=== PATIENT | male | born 1950 | race Caucasian/White ===

== ENCOUNTER 2022-04-09 10:55 | Inpatient (IN) | payer SELFPAY ==
[~2022-04-09] VITALS: Ht 167.6 cm; Wt 69.5 kg
[2022-04-09 13:51] LABS: BASOPHILS % 0.4 % (0.0-2.0); EOSINOPHILS % 0.1 % (0.0-5.0); HEMATOCRIT. 41.1 % (42.0-52.0); MEAN CORPUSCULAR HEMOGLOBIN 31.2 pg (28.0-32.0); MEAN CORPUSCULAR VOLUME 91.6 fL (80.0-94.0); MEAN PLATELET VOLUME 9.7 fl (7.4-10.4); MONOCYTES % 7.8 % (2.0-8.0); NEUTROPHILS % 80.7 % (40.0-76.0); PLATELET 134 x1000/uL (130-400); RED BLOOD CELL COUNT 4.49 mill/uL (4.7-6.1); RED CELL DISTRIBUTION WIDTH 14.7 % (11.6-14.6)
[2022-04-09 14:07] LABS: CHLORIDE 100 mEq/L (98-107)
[2022-04-09 14:18] LABS: ETHANOL BLOOD < 10 mg/dL
[2022-04-09] MEDS ORDERED: CEFTRIAXONE 1 G PREMIX 50 ML IV ONE (15:45)
[2022-04-09] MEDS ORDERED: SODIUM CHLORIDE 0.9% 1000ML BAG (SEPSIS BOLUS) IV ONE (15:45)
[2022-04-09] MEDS ORDERED: OSELTAMIVIR 75MG CAPSULE PO ONE (15:45)
[2022-04-09] MEDS ORDERED: AZITHROMYCIN 500MG/250ML 250 ML IV ONE (15:45)
[2022-04-09] MEDS ORDERED: ASPIRIN 81MG TABLET PO ONE (16:15)
[2022-04-09 16:23] LABS: CLARITY URINE CLOUDY (CLEAR); COLOR URINE DARK YELLOW (YELLOW); KETONES URINE TRACE (NEGATIVE); LEUKOCYTE ESTERASE URINE NEGATIVE (NEGATIVE); NITRITE URINE NEGATIVE (NEGATIVE); OCCULT BLOOD URINE 2+ (NEGATIVE); PH URINE 5.5 (4.5-8.0); PROTEIN URINE 2+ (NEGATIVE); SPECIFIC GRAVITY URINE 1.022 (1.005-1.030)
[2022-04-09] MEDS ORDERED: AZITHROMYCIN 500MG/250ML 250 ML IV NR ×2 (17:15→21:45)
[2022-04-09] MEDS ORDERED: ASPIRIN 81MG TABLET PO NR (18:30)
[2022-04-09] MEDS ORDERED: CLONIDINE 0.1MG TABLET PO PRN (21:15)
[2022-04-09] MEDS ORDERED: MAGNESIUM/ALUMINUM HYDROXIDE/SIMETHICONE 30ML UDC PO PRN (21:15)
[2022-04-09] MEDS ORDERED: ACETAMINOPHEN 325MG TABLET PO PRN (21:15)
[2022-04-09] MEDS ORDERED: HYDROCODONE/ACETAMINOPHEN 5/325MG TABLET PO PRN (21:15)
[2022-04-09] MEDS ORDERED: GUAIFENESIN 200MG/10ML SUGAR FREE UDC PO PRN (21:15)
[2022-04-09] MEDS ORDERED: ONDANSETRON HCL 4MG/2ML INJ IV PRN (21:15)
[2022-04-09] MEDS ORDERED: POTASSIUM CHLORIDE 20MEQ TABLET SR PO NR (21:15)
[2022-04-09] MEDS ORDERED: DOCUSATE SODIUM 100MG CAPSULE PO PRN (21:15)
[2022-04-09] MEDS ORDERED: OSELTAMIVIR 75MG CAPSULE PO NR (21:45)
[2022-04-09] MEDS ORDERED: ENOXAPARIN 40MG/0.4ML SYR SUBCUT SCH (22:00)
[2022-04-09] MEDS ORDERED: ALBUTEROL (0.083%) 2.5MG/3ML NEB HHN PRN (22:15)
[2022-04-09] MEDS: AMLODIPINE 10MG TABLET PO SCH (22:30)
[2022-04-09] MEDS: SODIUM CHLORIDE 0.9% 1,000 ML IV SCH (22:30)
[2022-04-09 23:20] VITALS: BP 129/77
[2022-04-09 23:49] VITALS: BP 129/77
[2022-04-10 04:00] VITALS: BP_SYST 108; BP_SYST 129; BP_DIAS 50; BP_DIAS 67
[2022-04-10 08:00] VITALS: BP 140/73
[2022-04-10] MEDS ORDERED: AZITHROMYCIN 500 MG in DEXT 5% WATER 250 ML IV SCH (08:00)
[2022-04-10 08:41] LABS: BASOPHILS % 0.3 % (0.0-2.0); EOSINOPHILS % 0.2 % (0.0-5.0); HEMATOCRIT. 37.4 % (42.0-52.0); HEMOGLOBIN. 12.6 g/dL (14.0-18.0); MEAN CORPUSCULAR HEMOGLOBIN 30.8 pg (28.0-32.0); MEAN CORPUSCULAR VOLUME 91.8 fL (80.0-94.0); MEAN PLATELET VOLUME 9.9 fl (7.4-10.4); MONOCYTES % 9.4 % (2.0-8.0); NEUTROPHILS % 76.1 % (40.0-76.0); PLATELET 118 x1000/uL (130-400); RED BLOOD CELL COUNT 4.08 mill/uL (4.7-6.1); RED CELL DISTRIBUTION WIDTH 14.6 % (11.6-14.6)
[2022-04-10] MEDS: OSELTAMIVIR 30MG CAPSULE PO SCH ×2 (08:47→21:06)
[2022-04-10] MEDS: AMLODIPINE 10MG TABLET PO SCH (08:47)
[2022-04-10] MEDS: FAMOTIDINE 20MG TABLET PO SCH (08:48)
[2022-04-10] MEDS ORDERED: CEFTRIAXONE SODIUM 1 G/VIAL IM SCH (09:00)
[2022-04-10 09:13] LABS: CHLORIDE 103 mEq/L (98-107)
[2022-04-10 09:32] LABS: T4 FREE 1.16 ng/dL (0.76-1.46)
[2022-04-10 11:09] LABS: *AMPHETAMINES SCREEN URINE NEGATIVE (NEGATIVE); *BARBITURATES SCREEN URINE NEGATIVE (NEGATIVE); *BENZODIAZEPINES SCREEN URINE NEGATIVE (NEGATIVE); *COCAINE SCREEN URINE NEGATIVE (NEGATIVE); CANNABINOID URINE SCREEN NEGATIVE (NEGATIVE); METHADONE URINE SCREEN NEGATIVE (NEGATIVE); OPIATES URINE SCREEN NEGATIVE (NEGATIVE); PHENCYCLIDINE URINE SCREEN NEGATIVE (NEGATIVE)
[2022-04-10] MEDS: SODIUM CHLORIDE 0.9% 1,000 ML IV SCH (11:29)
[2022-04-10] MEDS ORDERED: CEFTRIAXONE 1,000 MG in DEXTROSE 5% WATER 50 ML IV SCH (16:00)
[2022-04-10 20:00] VITALS: BP 122/68
[2022-04-10] MEDS ORDERED: AZITHROMYCIN 500MG in DEXTROSE 5% WATER 250ML IV SCH (21:45)
[2022-04-11 00:27] VITALS: BP 138/78
[2022-04-11 04:00] VITALS: BP 143/69
[2022-04-11 07:11] LABS: *CREATININE RANDOM URINE 58.7 mg/dL (Not Estab.); MICROALBUMIN RANDOM URINE 28.7 ug/mL (Not Estab.)
[2022-04-11 08:00] VITALS: BP 136/54
[2022-04-11] MEDS: FAMOTIDINE 20MG TABLET PO SCH (08:50)
[2022-04-11] MEDS: AMLODIPINE 10MG TABLET PO SCH (08:50)
[2022-04-11 10:23] LABS: BASOPHILS % 0.3 % (0.0-2.0); EOSINOPHILS % 0.6 % (0.0-5.0); HEMATOCRIT. 39.3 % (42.0-52.0); HEMOGLOBIN. 13.2 g/dL (14.0-18.0); LYMPHOCYTES % 27.6 % (20.0-50.0); MEAN CORPUSCULAR HEMOGLOBIN 30.8 pg (28.0-32.0); MEAN CORPUSCULAR VOLUME 91.4 fL (80.0-94.0); MONOCYTES % 11.3 % (2.0-8.0); NEUTROPHILS % 60.2 % (40.0-76.0); PLATELET 122 x1000/uL (130-400); RED CELL DISTRIBUTION WIDTH 14.5 % (11.6-14.6)
[2022-04-11 10:36] VITALS: BP 136/54
[2022-04-11 11:05] LABS: CHLORIDE 106 mEq/L (98-107)
[2022-04-11] MEDS: OSELTAMIVIR 30MG CAPSULE PO SCH (11:15)
[2022-04-11] MEDS ORDERED: NALOXONE HCL 0.4MG/ML VIAL IV PRN (15:30)
[2022-04-11] MEDS ORDERED: AZITHROMYCIN 500 MG TABLET PO SCH (21:00)
[2022-04-15 13:11] LABS: ATYPICAL P-ANCA <1:20 titer (Neg:<1:20); CYTOPLASMIC C-ANCA <1:20 titer (Neg:<1:20); PERINUCLEAR P-ANCA <1:20 titer (Neg:<1:20)
[2022-04-15 19:06] LABS: ANTI-MYELOPEROXIDASE AB < 0.2 units (0.0-0.9); ANTI-PROTEINASE 3 ABS < 0.2 units (0.0-0.9)
== END 2022-04-11 14:00 | disposition home or self-care (01) | DRG 139 ==
LOC: ER 10:55 → MICUSO 17:49 → EDBEDREQ 17:52 → 7EST 04-10 00:11
PROVIDERS: ADMIT Hospitalist; ATTEND Hospitalist
DX: J10.00 Influenza due to other identified influenza virus with unspecified type of pneumonia (principal); N17.0 Acute kidney failure with tubular necrosis; E87.1 Hypo-osmolality and hyponatremia; Z20.822 Contact with and (suspected) exposure to COVID-19; I10 Essential (primary) hypertension; E87.6 Hypokalemia; E88.09 Other disorders of plasma-protein metabolism, not elsewhere classified; J98.11 Atelectasis; R04.0 Epistaxis; R73.9 Hyperglycemia, unspecified; F17.290 Nicotine dependence, other tobacco product, uncomplicated
CPT/HCPCS: 36415; 71045; 80053; 80061; 80305; 80320; 81003; 82043; 82570; 83036; 83520; 83605; 83880; 84439; 84443; 84484; 85025; 85379; 85651; 86060; 86160; 86256; 87426; 87804; 93970; 97162; 97166; 99285; C9803; J0456; J0696; J7030; J7060; G0480